=== PATIENT | female | born 1980 | race Caucasian/White ===

== ENCOUNTER 2018-08-06 08:35 | Outpatient (CLI) | payer OTHER, BC ==
[2018-08-06 09:30] LABS: ADD UMIC NO; UR ASCORBIC ACID NEGATIVE (NEGATIVE); UR BILIRUBIN (Dip) NEGATIVE (NEGATIVE); UR BLOOD (Dip) NEGATIVE (NEGATIVE); UR CLARITY CLEAR (CLEAR); UR COLOR YELLOW (YELLOW); UR GLUCOSE (Dip) NEGATIVE (NEGATIVE); UR KETONES (Dip) NEGATIVE (NEGATIVE); UR LEUKOCYTE ESTERASE (Dip) NEGATIVE Leu/ul (NEGATIVE); UR NITRITE (Dip) NEGATIVE (NEGATIVE); UR SPECIFIC GRAVITY (Dip) 1.018 (1.003-1.030); UR TOTAL PROTEIN (Dip) NEGATIVE (NEGATIVE); UR UROBILINOGEN (Dip) NEGATIVE (NEGATIVE)
== END 2018-08-06 09:50 | disposition home or self-care (01) ==
LOC: OBT 08:35 → L-D 08:35 → OBT 09:50
DX: O98.513 Other viral diseases complicating pregnancy, third trimester (principal); J06.9 Acute upper respiratory infection, unspecified; J32.9 Chronic sinusitis, unspecified; Z3A.32 32 weeks gestation of pregnancy
CPT/HCPCS: 76818; 81003

== ENCOUNTER 2018-09-23 09:20 | Inpatient (IN) | payer OTHER ==
[2018-09-23] MEDS: LACTATED RINGER'S 1,000 ML IV ×3 (10:28→16:52)
[2018-09-23] MEDS ORDERED: METHYLERGONOVINE 0.2 MG INJ IM ×2 (10:30→18:30)
[2018-09-23] MEDS ORDERED: CARBOPROST 250 MCG INJ IM ×2 (10:30→18:30)
[2018-09-23] MEDS ORDERED: CEFAZOLIN 2 GM/50 ML (PMX) 50 ML IVPB (10:30)
[2018-09-23] MEDS ORDERED: MISOPROSTOL 200 MCG TAB PR ×2 (10:30→18:30)
[2018-09-23] MEDS ORDERED: OXYTOCIN 30 UNITS/LR 500 ML IV ×3 (10:30→18:30)
[2018-09-23 10:47] LABS: ADD MAN DIFF? NO
[2018-09-23 10:52] LABS: WHITE BLOOD COUNT 11.3 10^3/ul (4.8-10.8)
[2018-09-23 10:52] LABS: ABNORMAL IP MESSAGE 1; BASOPHILS % 0.3 % (0.0-2.0); EOSINOPHILS # 0.1 10^3/ul (0.0-0.5); EOSINOPHILS % 1.2 % (0.0-7.0); HEMOGLOBIN 13.8 g/dl (12.0-16.0); LYMPHOCYTES # 2.1 10^3/ul (0.8-2.9); LYMPHOCYTES % 18.4 % (15.0-51.0); MEAN CORPUSCULAR HEMOGLOBIN 28.6 pg (29.0-33.0); MEAN CORPUSCULAR HGB CONC 33.7 g/dl (32.0-37.0); MEAN CORPUSCULAR VOLUME 84.9 fl (82.0-101.0); MEAN PLATELET VOLUME 13.7 fl (7.4-10.4); MONOCYTE # 0.8 10^3/ul (0.3-0.9); MONOCYTES % 6.6 % (0.0-11.0); NEUTROPHIL # 8.3 10^3/ul (1.6-7.5); NEUTROPHILS % 73.2 % (39.0-77.0); PLATELET COUNT 143 10^3/UL (140-415); RED BLOOD COUNT 4.83 10^6/ul (4.20-5.40); RED CELL DISTRIBUTION WIDTH 13.8 % (11.5-14.5)
[2018-09-23 10:53] LABS: POSITIVE DIFF @See below
[2018-09-23 11:15] LABS: INR 0.89; PROTIME 12.2 Sec (11.9-14.9)
[2018-09-23 12:08] LABS: AMPHETAMINE/METHAMPHETAMINE Negative (NEGATIVE); BARBITURATES Negative (NEGATIVE); BENZODIAZEPINES Negative (NEGATIVE); CANNABINOIDS Positive (NEGATIVE); COCAINE Negative (NEGATIVE); OPIATES Negative (NEGATIVE)
[2018-09-23 15:07] LABS: RAPID PLASMA REAGIN NONREACTIVE (NR)
[2018-09-23] MEDS: CITRIC ACID/NA CITRATE 30 ML CUP PO (16:41)
[2018-09-23] MEDS: ONDANSETRON 4 MG INJ IV (16:41)
[2018-09-23] MEDS ORDERED: OXYTOCIN 10 UNIT INJ (17:09)
[2018-09-23] MEDS ORDERED: morphine SULFATE/PF (10 MG/10 ML) INJ (17:09)
[2018-09-23] MEDS ORDERED: FENTAnyl 50 MCG/ML VIAL (17:09)
[2018-09-23] MEDS ORDERED: METOCLOPRAMIDE 10 MG INJ (17:09)
[2018-09-23] MEDS ORDERED: FENTAnyl 50 MCG/ML VIAL IV ×3 (18:00)
[2018-09-23] MEDS ORDERED: MIDAZOLAM 1 MG/ML 2 ML INJ IV (18:00)
[2018-09-23] MEDS ORDERED: MEPERIDINE 25 MG INJ IV (18:00)
[2018-09-23] MEDS ORDERED: ALBUTEROL 0.083% (NEB) 2.5 MG/3 ML AMP HHN (18:00)
[2018-09-23] MEDS ORDERED: morphine 2 MG INJ IV ×2 (18:00)
[2018-09-23] MEDS ORDERED: DIPHENHYDRAMINE 50 MG INJ IV (18:00)
[2018-09-23] MEDS ORDERED: NALBUPHINE HCL (10 MG/1 ML) INJ IV (18:00)
[2018-09-23] MEDS ORDERED: NALOXONE (0.4 MG/ML) INJ IV (18:00)
[2018-09-23] MEDS ORDERED: OXYCODONE/ACETAMINOPHEN (5/325) TAB PO ×2 (18:00)
[2018-09-23] MEDS ORDERED: IPRATROPIUM (NEB) 0.5 MG/2.5 ML AMP HHN (18:00)
[2018-09-23] MEDS ORDERED: hydrALAzine 20 MG INJ IV (18:00)
[2018-09-23] MEDS ORDERED: TRIMETHOBENZAMIDE 100 MG/ML VIAL IM ×2 (18:00)
[2018-09-23] MEDS ORDERED: HYDROmorphONE 1 MG/5 ML IV SYRINGE IV ×3 (18:00)
[2018-09-23] MEDS ORDERED: LABETALOL HCL 20MG INJ IV (18:00)
[2018-09-23] MEDS ORDERED: ONDANSETRON 4 MG INJ IV ×2 (18:00)
[2018-09-23] MEDS ORDERED: EPHEDrine 25 MG/5 ML SYG IV (18:00)
[2018-09-23] MEDS ORDERED: METHYLERGONOVINE 0.2 MG TAB PO (18:30)
[2018-09-23] MEDS: KETOROLAC 30 MG INJ IV (18:52)
[2018-09-23] MEDS: OXYTOCIN 30 UNITS/LR 500 ML IV (19:13)
[2018-09-23] MEDS: SENNA/DOCUSATE NA (8.6MG/50MG) TAB PO (21:00)
[2018-09-24] MEDS: LACTATED RINGER'S 1,000 ML IV ×3 (04:37→19:32)
[2018-09-24] MEDS: DIPHENHYDRAMINE 50 MG INJ IV (05:41)
[2018-09-24 08:17] LABS: ADD MAN DIFF? NO
[2018-09-24 08:23] LABS: WHITE BLOOD COUNT 14.2 10^3/ul (4.8-10.8)
[2018-09-24 08:23] LABS: ABNORMAL IP MESSAGE 1; BASOPHILS % 0.3 % (0.0-2.0); EOSINOPHILS # 0.1 10^3/ul (0.0-0.5); EOSINOPHILS % 0.7 % (0.0-7.0); HEMATOCRIT 36.3 % (37.0-47.0); HEMOGLOBIN 11.9 g/dl (12.0-16.0); LYMPHOCYTES # 1.6 10^3/ul (0.8-2.9); LYMPHOCYTES % 11.4 % (15.0-51.0); MEAN CORPUSCULAR HEMOGLOBIN 28.4 pg (29.0-33.0); MEAN CORPUSCULAR HGB CONC 32.8 g/dl (32.0-37.0); MEAN CORPUSCULAR VOLUME 86.6 fl (82.0-101.0); MEAN PLATELET VOLUME 14.1 fl (7.4-10.4); MONOCYTE # 0.9 10^3/ul (0.3-0.9); NEUTROPHIL # 11.5 10^3/ul (1.6-7.5); NEUTROPHILS % 81.1 % (39.0-77.0); PLATELET COUNT 132 10^3/UL (140-415); RED BLOOD COUNT 4.19 10^6/ul (4.20-5.40); RED CELL DISTRIBUTION WIDTH 13.9 % (11.5-14.5)
[2018-09-24 08:47] LABS: ANION GAP 3 (5-13); BLOOD UREA NITROGEN 6 mg/dl (7-20); CALCIUM 8.3 mg/dl (8.4-10.2); CARBON DIOXIDE 26 mmol/L (21-31); CHLORIDE 106 mmol/L (97-110); CREATININE 0.48 mg/dl (0.44-1.00); Estimated GFR > 60 mL/min (>60); GLUCOSE 68 mg/dl (70-220); POTASSIUM 3.9 mmol/L (3.5-5.1); SODIUM 135 mmol/L (135-144)
[2018-09-24] MEDS: LANOLIN HPA 1 PKT TOP (09:29)
[2018-09-24] MEDS: SENNA/DOCUSATE NA (8.6MG/50MG) TAB PO ×2 (09:29→19:53)
[2018-09-24] MEDS: KETOROLAC 30 MG INJ IV (12:16)
[2018-09-24] MEDS: IBUPROFEN 800 MG TAB PO (19:53)
[2018-09-25] MEDS: HYDROCODONE/APAP (5/325) TAB PO ×2 (02:07→12:56)
[2018-09-25] MEDS: LACTATED RINGER'S 1,000 ML IV (02:16)
[2018-09-25] MEDS: IBUPROFEN 800 MG TAB PO ×2 (05:30→16:41)
[2018-09-25] MEDS: SENNA/DOCUSATE NA (8.6MG/50MG) TAB PO ×2 (08:44→21:58)
[2018-09-25] MEDS: BISACODYL 10 MG SUPP PR (21:58)
[2018-09-25] MEDS: MAGNESIUM HYDROXIDE 30ML CUP PO (21:58)
[2018-09-26] MEDS: IBUPROFEN 800 MG TAB PO ×2 (01:07→11:41)
[2018-09-26] MEDS: HYDROCODONE/APAP (5/325) TAB PO (05:32)
[2018-09-26] MEDS: MAGNESIUM HYDROXIDE 30ML CUP PO (05:56)
[2018-09-26] MEDS: BISACODYL 10 MG SUPP PR (05:57)
[2018-09-26 08:13] LABS: ADD MAN DIFF? NO
[2018-09-26 08:22] LABS: ABNORMAL IP MESSAGE 1; BASOPHILS % 0.4 % (0.0-2.0); EOSINOPHILS # 0.3 10^3/ul (0.0-0.5); EOSINOPHILS % 2.9 % (0.0-7.0); HEMATOCRIT 38.8 % (37.0-47.0); HEMOGLOBIN 12.7 g/dl (12.0-16.0); LYMPHOCYTES # 2.3 10^3/ul (0.8-2.9); LYMPHOCYTES % 22.3 % (15.0-51.0); MEAN CORPUSCULAR HEMOGLOBIN 28.7 pg (29.0-33.0); MEAN CORPUSCULAR HGB CONC 32.7 g/dl (32.0-37.0); MEAN CORPUSCULAR VOLUME 87.6 fl (82.0-101.0); MEAN PLATELET VOLUME 13.1 fl (7.4-10.4); MONOCYTE # 0.8 10^3/ul (0.3-0.9); MONOCYTES % 8.1 % (0.0-11.0); NEUTROPHIL # 6.7 10^3/ul (1.6-7.5); PLATELET COUNT 177 10^3/UL (140-415); RED BLOOD COUNT 4.43 10^6/ul (4.20-5.40); RED CELL DISTRIBUTION WIDTH 14.3 % (11.5-14.5)
[2018-09-26 08:22] LABS: WHITE BLOOD COUNT 10.2 10^3/ul (4.8-10.8)
[2018-09-26 08:27] LABS: POSITIVE DIFF @See below
[2018-09-26] MEDS: DIPHTH/TET/ACEL PERTUSS (ADULT) 0.5 ML VIAL IM* (09:23)
[2018-09-26] MEDS: SENNA/DOCUSATE NA (8.6MG/50MG) TAB PO (09:23)
[2018-09-26] MEDS: MEASLES,MUMPS,RUBELLA VACCINE INJ SC* (09:24)
== END 2018-09-26 15:19 | disposition home or self-care (01) | DRG 788 ==
LOC: L-D 09:20 → PP1 20:27
PROC: 10D00Z1 Extraction of Products of Conception, Low, Open Approach (ICD-10-PCS; principal; 2018-09-23 15:30)
DX: O34.211 Maternal care for low transverse scar from previous cesarean delivery (principal); Z3A.39 39 weeks gestation of pregnancy; Z37.0 Single live birth
CPT/HCPCS: 80048; 80307; 85025; 85610; 85730; 86592; 86850; 86900; 86901; 99464